=== PATIENT | female | born 1955 | race Caucasian/White ===

== ENCOUNTER 2021-12-15 03:44 | Inpatient (IN) | payer OTHER ==
[~2021-12-15] VITALS: Ht 162.6 cm; Wt 82.2 kg
[2021-12-15 03:50] VITALS: BP_SYST 167
--- NOTE | 2021-12-15 03:54 | NUR ---
Placed in room 2 . Placed on monitor technician, blood pressure machine and pulse oximeter. To gown for exam. Side rails up. Report given to Glenn IBANEZ.
--- NOTE | 2021-12-15 04:00 | NUR ---
ER at bedside examining patient.
[2021-12-15] MEDS ORDERED: dilTIAZem HCL IVP 5 MG/ML VIAL IVP ONE ×2 (04:15→05:30)
[2021-12-15 04:29] LABS: BASOPHILS % (AUTO) 0.8 % (0.0-2.0); EOSINOPHILS # (AUTO) 0.1 K/uL (0.0-0.4); EOSINOPHILS % (AUTO) 1.8 % (0.0-4.0); HEMATOCRIT 37.2 % (36-48); HEMOGLOBIN 12.7 g/dL (12.0-16.0); LYMPHOCYTES # (AUTO) 2.7 K/uL (1.0-5.5); LYMPHOCYTES % (AUTO) 45.3 % (20.5-51.5); MEAN CORPUSCULAR HEMOGLOBIN 32 pg (27-31); MEAN CORPUSCULAR HGB CONC 34 % (32-36); MEAN CORPUSCULAR VOLUME 93 fL (79.0-98.0); MONOCYTES # (AUTO) 0.7 K/uL (0.0-1.0); MONOCYTES % (AUTO) 11.4 % (1.7-9.3); NEUTROPHILS # (AUTO) 2.4 K/uL (1.8-7.7); NEUTROPHILS % (AUTO) 40.7 % (40.0-70.0); PLATELET COUNT (AUTO) 204 K/uL (130-430); RED BLOOD CELL COUNT(AUTO) 3.99 MIL/uL (4.2-6.2); RED CELL DISTRIBUTION WIDTH 12.6 % (9.0-15.0); WHITE BLOOD COUNT (AUTO) 5.9 K/uL (4.8-10.8)
[2021-12-15 04:38] LABS: ANION GAP 6 (5-15); CALCIUM 7.9 mg/dL (8.4-11.0); CHLORIDE 102 mmol/L (98-107); CREATININE 0.98 mg/dL (0.55-1.30); GLUCOSE 105 mg/dL (70-99); POTASSIUM 3.7 mmol/L (3.5-5.1); SODIUM SERUM 136 mmol/L (136-145); UREA NITROGEN, BLOOD 28 mg/dL (8-21)
[2021-12-15] MEDS ORDERED: ONDANSETRON HCL 4 MG/2 ML VIAL ONE (04:42)
[2021-12-15] MEDS ORDERED: ONDANSETRON HCL 4 MG/2 ML VIAL IVP ONE (04:45)
[2021-12-15 04:46] LABS: ALANINE AMINOTRANSFERASE 15 U/L (12-78); ALBUMIN 3.5 g/dL (3.4-4.8); ASPARTATE AMINOTRANSFERASE 15 U/L (10-37); TOTAL BILIRUBIN 0.1 mg/dL (0.0-1.0)
[2021-12-15 04:49] LABS: GFR AFRICAN AMERICAN 73 mL/min (>90)
[2021-12-15 04:59] LABS: FREE T4 (FREE THYROXINE) 1.1 ng/dl (0.8-1.5); THYROID STIMULATING HORMONE 2.93 uIu/mL (0.36-3.74)
--- NOTE | 2021-12-15 05:00 | NUR ---
Admit bed requested Patient will be admitted to care of Dr.A RAE. Admitted to TELE unit. Diagnosis NEW ONSET A-FIB Inpatient (Yes or No) YES Observation (Yes or No) NO Orientation concerns or request close to nursing station (Yes or No) NO Covid Status PENDING On vent or bipap NO Isolation requirements NO Needs a sitter NO From Home (Yes or if No enter name of facility) YES Requires Dialysis (Yes or No) NO Med Rec Completed (Yes of No) PENDING
[2021-12-15 05:03] LABS: BILIRUBIN,URINE NEGATIVE (NEGATIVE); CLARITY/URINE CLEAR (CLEAR); COLOR,URINE YELLOW (YELLOW); GLUCOSE,URINE NEGATIVE (NEGATIVE); KETONES,URINE NEGATIVE (NEGATIVE); LEUKOCYTE ESTERASE ,URINE NEGATIVE (NEGATIVE); NITRITE, URINE NEGATIVE (NEGATIVE); PROTEIN URINE NEGATIVE (NEGATIVE); UROBILINOGEN,URINE 0.2 (0.2-1.0)
[2021-12-15 05:07] LABS: BLOOD, URINE TRACE (NEGATIVE)
[2021-12-15 05:14] LABS: BACTERIA,URINE FEW /HPF (None Seen); RBC,URINE 0-3 /HPF (0-3); WBC,URINE 0-3 /HPF (0-3)
[2021-12-15] MEDS ORDERED: ARMOUR THYROID PO (05:43)
[2021-12-15] MEDS ORDERED: LISI10TA29 PO (05:43)
[2021-12-15] MEDS ORDERED: NITR-85 PO (05:44)
--- NOTE | 2021-12-15 05:55 | NUR ---
Pt undecided for her code status at this time.Dr Pearson made aware .
--- NOTE | 2021-12-15 06:10 | NUR ---
ADMIT NOTE Received pt from ER to the floor with a diagnosis of new onset A fib. Admission process initiated. Patient oriented to pain management, safety and call light-teach back done.
--- NOTE | 2021-12-15 06:10 | NUR ---
Pt converted to sinus rhythm on monitor with rate in 70s. Being admitted to the floor room 112b. Report called and given to Belkis IBANEZ. All questions answered and concerns addressed. VS stable and son is accompanying to room
--- NOTE | 2021-12-15 06:12 | NUR ---
Patient will be admitted to care of Bhavna Oswald. Admitted to tele unit. Will go to room 112b. Belongings list completed. Complete and up to date summary report printed. SBAR report to be given at bedside with opportunity for questions.
--- NOTE | 2021-12-15 06:15 | NUR ---
CONSULTATION PAGED REASON FOR CONSULTATION:AFIB WAS CONSULT CALED?Y PERSON WHO WAS NOTIFIED:GENE CONSULTING PHYSICIAN:BLANKA PATEL INSURANCE CLAIMS REPRESENTATIVE SPECIALTY:CARDIO INSURANCE CLAIMS REPRESENTATIVE PHONE NUMBER:[phone] REQUESTING PHYSICIAN:PRATIBHA PATEL
[2021-12-15 06:20] VITALS: BP_SYST 141
--- NOTE | 2021-12-15 07:40 | NUR ---
Closing Patient resting in bed, AOx4, unlabored breathing on room air. Ambulated from gurney to bed on arrival. Care endorsed to oncoming nurse.
[2021-12-15 08:15] VITALS: BP_SYST 130
--- NOTE | 2021-12-15 08:15 | NUR ---
INITIAL ROUNDS Received pt AAOx4, no c/o chest pain or chest pressure, no c/o palpitations. Plan o care for the day review with pt-pt verbalized her understanding. Admission data physical assessment completed. Pain management, disease process, skin and safety discussed-teach back done. Call light within reach.
[2021-12-15 08:52] VITALS: BP_SYST 130
[2021-12-15] MEDS ORDERED: ACETAMINOPHEN 325 MG TABLET PO PRN ×2 (09:00→09:45)
[2021-12-15] MEDS ORDERED: HYDROcodone/ACETAMIN 10-325 MG TAB PO PRN (09:45)
[2021-12-15] MEDS ORDERED: NALOXONE HCL 0.4 MG/ML AMP (NARCAN) IVP PRN ×2 (09:45)
[2021-12-15] MEDS ORDERED: ONDANSETRON HCL 4 MG/2 ML VIAL IVP PRN (09:45)
[2021-12-15] MEDS ORDERED: HYDROcodone/ACETAMIN 5-325 MG TAB (NORCO/ VICODIN) PO PRN (09:45)
[2021-12-15] MEDS ORDERED: LISINOPRIL 10 MG TABLET (PRINIVIL) PO ONE (10:00)
[2021-12-15] MEDS: NITROFURANTOIN MONOHYD/M-CRYST 100 MG CAPSULE (MacroBID) PO ONE ×2 (10:00→12:00)
[2021-12-15] MEDS: NORMAL SALINE 5 ML DISP.SYRIN IVF SCH ×4 (14:00→21:43)
[2021-12-15 16:13] VITALS: BP_SYST 130
--- NOTE | 2021-12-15 18:15 | NUR ---
CLOSING NOTE Pt sitting up in bed eating her dinner, no s/s resp distress, no c/o pain or discomfort, no c/o palpitations. Pt given fresh pitcher of ice water and a cup of hot water. Needs met, call light within reach.
--- NOTE | 2021-12-15 19:15 | NUR ---
OPENING NOTES Patient resting in bed - no s/s pain or distress noted. Respirations even and unlabored - head of bed elevated. IV site patent - no s/s redness, infection, or infiltration. Bed locked and in lowest position.
[2021-12-15] MEDS: NITROFURANTOIN MONOHYD/M-CRYST 100 MG CAPSULE (MacroBID) PO SCH (21:00)
--- NOTE | 2021-12-15 22:50 | NUR ---
PAGED DR. RAE FOR SLEEPING MED ORDER PATIENT ASKS FOR SLEEPING MED - PAGED DR. RAE PATIENT HAD STATED THEY TAKE 0.5mg XANAX AT NIGHT FOR SLEEP NOTIFIED DR ABOUT MEDICATION, STATES OKAY FOR ONE TIME ORDER OF 0.5MG XANAX PO
[2021-12-15] MEDS ORDERED: ALPRAZolam 0.25 MG TABLET PO ONE (23:00)
[2021-12-16 00:38] VITALS: BP_SYST 103
[2021-12-16] MEDS: NORMAL SALINE 5 ML DISP.SYRIN IVF SCH ×2 (06:00→06:42)
[2021-12-16 07:12] LABS: BASOPHILS % (AUTO) 0.4 % (0.0-2.0); EOSINOPHILS # (AUTO) 0.2 K/uL (0.0-0.4); EOSINOPHILS % (AUTO) 3.2 % (0.0-4.0); HEMATOCRIT 37.2 % (36-48); HEMOGLOBIN 12.8 g/dL (12.0-16.0); LYMPHOCYTES # (AUTO) 1.9 K/uL (1.0-5.5); LYMPHOCYTES % (AUTO) 40.2 % (20.5-51.5); MEAN CORPUSCULAR HEMOGLOBIN 32 pg (27-31); MEAN CORPUSCULAR HGB CONC 34 % (32-36); MEAN CORPUSCULAR VOLUME 94 fL (79.0-98.0); MONOCYTES # (AUTO) 0.5 K/uL (0.0-1.0); MONOCYTES % (AUTO) 10.4 % (1.7-9.3); NEUTROPHILS # (AUTO) 2.2 K/uL (1.8-7.7); NEUTROPHILS % (AUTO) 45.8 % (40.0-70.0); PLATELET COUNT (AUTO) 207 K/uL (130-430); RED BLOOD CELL COUNT(AUTO) 3.97 MIL/uL (4.2-6.2); RED CELL DISTRIBUTION WIDTH 12.9 % (9.0-15.0); WHITE BLOOD COUNT (AUTO) 4.7 K/uL (4.8-10.8)
--- NOTE | 2021-12-16 07:45 | NUR ---
INITIAL ROUNDS Received pt AAOx4, no c/o chest pain or chest pressure, no c/o palpitations. Plan of care for the day reviewed with pt-pt verbalized her understanding. Pt states she is feeling better today. Pain management, disease process, skin and safety discussed-teach back done. Call light within reach.
[2021-12-16 07:54] LABS: CALCIUM 8.1 mg/dL (8.4-11.0); CREATININE 0.94 mg/dL (0.55-1.30); PHOSPHORUS 4.6 mg/dL (2.7-4.5); POTASSIUM 4.2 mmol/L (3.5-5.1)
[2021-12-16 08:20] VITALS: BP_SYST 131
[2021-12-16] MEDS: NITROFURANTOIN MONOHYD/M-CRYST 100 MG CAPSULE (MacroBID) PO SCH (08:24)
[2021-12-16] MEDS ORDERED: LISINOPRIL 10 MG TABLET (PRINIVIL) PO SCH (09:00)
[2021-12-16] MEDS ORDERED: THYROID 30 MG TABLET PO SCH (09:00)
[2021-12-16] MEDS ORDERED: ARMOUR THYROID PO SCH (09:00)
[2021-12-16 12:52] VITALS: BP_SYST 131
--- NOTE | 2021-12-16 12:59 | NUR ---
ROUNDS/MD/DISCHARGE Pt sitting up in bed with no c/o chest pain or chest pressure or palpitations. Pt waiting to be discharged after seen by Dr. Bhavna Oswald-explained to the pt that we need to clear it with Dr. Valente Oswald per MD discharge order. hospital personnel director stated she will call Dr. Valente Oswald. Pt verbalized her understanding. Call light within reach.
--- NOTE | 2021-12-16 13:12 | NUR ---
CATALINO TO D/C PER CARDIO MD Spoke with Dr. Valente Oswald and actalino to discharge pt home from cardio standpoint, pt to follow-up with Sheet Catcher in 2 weeks.
--- NOTE | 2021-12-16 13:31 | NUR ---
PATIENT DISCHARGED HOME Patient given medication reconciliation form and D/C instructions. Exit Care explained and provided. Patient verbalized her understanding. MD discussed with patient the results and treatment provided. Ambulatory with steady gait for discharge to home. Patient in stable condition, ID band removed. IV catheter removed, intact and dressing applied, no active bleeding. Patient educated on pain management. All belongings sent with patient. Patient left floor via wheelchair to private vehicle in no distress.
== END 2021-12-16 13:20 | disposition home or self-care (01) | DRG 310 ==
LOC: SED 03:44 → STU 05:04
PROVIDERS: ADMIT Preventive Medicine Preventive Medicine/Occupational Environmental Medicine; ATTEND Preventive Medicine Preventive Medicine/Occupational Environmental Medicine
DX: I48.91 Unspecified atrial fibrillation (principal); E03.9 Hypothyroidism, unspecified; I10 Essential (primary) hypertension; F10.10 Alcohol abuse, uncomplicated; Y90.9 Presence of alcohol in blood, level not specified; Z20.822 Contact with and (suspected) exposure to COVID-19; M06.9 Rheumatoid arthritis, unspecified; E06.3 Autoimmune thyroiditis; G47.00 Insomnia, unspecified; I42.9 Cardiomyopathy, unspecified; Z88.8 Allergy status to other drugs, medicaments and biological substances; Z79.899 Other long term (current) drug therapy
CPT/HCPCS: 36415; 71045; 80048; 80053; 81000; 83735; 83880; 84100; 84439; 84443; 84484; 85025; 93005; 93306; 96374; 96375; 99285; G0378; J2405; J3490

== ENCOUNTER 2022-09-29 20:37 | Observation (INO) | payer OTHER ==
[~2022-09-29] VITALS: Ht 162.6 cm; Wt 79.4 kg
[~2022-09-29 20:37] MED LIST: ARMOUR THYROID PO; LISI10TA29 PO; NITR-85 PO
[2022-09-29 20:45] VITALS: BP_SYST 145
--- NOTE | 2022-09-29 20:51 | NUR ---
Report given to MARCELLE Theodore at this time.
--- NOTE | 2022-09-29 20:51 | NUR ---
Patient triaged and placed in ED bed 8 for isolation precautions due to Covid postive home test on 09/19/22. Patient has hx of afib and has elevated HR 145-165 at this time. Patient A/Ox4, ambulatory, resp even and unlabored. Placed on monitor in bed. Report given to MARCELLE Cordova. ER MD Luna made aware.
--- NOTE | 2022-09-29 21:01 | NUR ---
ER at bedside examining patient.
[2022-09-29 21:19] LABS: HEMATOCRIT 40.5 % (36-48); HEMOGLOBIN 13.9 g/dL (12.0-16.0); MEAN CORPUSCULAR HEMOGLOBIN 33 pg (27-31); MEAN CORPUSCULAR HGB CONC 34 % (32-36); MEAN CORPUSCULAR VOLUME 95 fL (79.0-98.0); PLATELET COUNT (AUTO) 165 K/uL (130-430); RED BLOOD CELL COUNT(AUTO) 4.29 MIL/uL (4.2-6.2); WHITE BLOOD COUNT (AUTO) 3.4 K/uL (4.8-10.8)
[2022-09-29 21:30] LABS: ANION GAP 9 (5-15); CALCIUM 8.2 mg/dL (8.4-11.0); CHLORIDE 97 mmol/L (98-107); CREATININE 1.13 mg/dL (0.55-1.30); GLUCOSE 107 mg/dL (70-99); UREA NITROGEN, BLOOD 26 mg/dL (8-21)
[2022-09-29] MEDS ORDERED: dilTIAZem HCL IVP 5 MG/ML VIAL IVP ONE ×3 (21:30→22:45)
[2022-09-29 21:43] LABS: ALANINE AMINOTRANSFERASE 29 U/L (12-78); ALBUMIN 3.6 g/dL (3.4-4.8); ASPARTATE AMINOTRANSFERASE 22 U/L (10-37); PHOSPHORUS 4.3 mg/dL (2.7-4.5); THYROID STIMULATING HORMONE 3.21 uIu/mL (0.34-4.82); TOTAL BILIRUBIN 0.3 mg/dL (0.0-1.0)
[2022-09-29 21:51] LABS: GFR AFRICAN AMERICAN 62 mL/min (>90)
[2022-09-29 21:56] LABS: BAND % (MANUAL) 6 % (0-6)
[2022-09-29 21:57] LABS: BASOPHILS % (MANUAL) 0 % (0-2); EOSINOPHILS % (MANUAL) 1 % (0-7); LYMPHOCYTES % (MANUAL) 50 % (20-46); MONOCYTES % (MANUAL) 19 % (0-11)
--- NOTE | 2022-09-29 22:15 | NUR ---
prior to administering cardizem pt had bouts of NSR @72 bpm. ER MD notified of this to confirm if he wanted ordered sose of 20 mg iv. Md Confirmed to give sode as ordered.
[2022-09-29] MEDS ORDERED: DILT60TA3 PO (23:15)
[2022-09-29] MEDS ORDERED: APIX2.5T PO (23:15)
[2022-09-29] MEDS ORDERED: DILTIAZEM HCL 60 MG TABLET PO ONE (23:15)
[2022-09-29] MEDS ORDERED: LISI20TA30 PO (23:15)
[2022-09-29] MEDS ORDERED: ARMOUR THYROID PO (23:15)
--- NOTE | 2022-09-29 23:15 | NUR ---
Medication reconciliation completed with information provided by pt at the bedside. Any prior medication reconciliation on file was reviewed and corrected.
[2022-09-29] MEDS ORDERED: dilTIAZem HCL IVP 5 MG/ML VIAL IVP PRN (23:45)
--- NOTE | 2022-09-29 23:45 | NUR ---
Admit bed requested Patient will be admitted to care of . Admitted to TELE unit. Diagnosis A-FIB WITH RVR Inpatient (Yes or No) YES Observation (Yes or No) NO Orientation concerns or request close to nursing station (Yes or No) NO Covid Status POSITIVE On vent or bipap NO Isolation requirements NO Needs a sitter NO From Home (Yes or if No enter name of facility) YES Requires Dialysis (Yes or No) NO Med Rec Completed (Yes of No) YES
[2022-09-30] VITALS (7 sets, daily range): BP systolic 100–117
--- NOTE | 2022-09-30 02:00 | NUR ---
Received pt from ED. Pt awake and oriented. Ambulatory. v/s stable afebrile. Tele- A FIB rate < 100. Pt denied palpitation. Initiated Enhanced contact isolation for Covid positive. Redness on bilateral behind ear and inside ear, perineal area and gluteal crease- no open wound. Room air. Will cont monitor associate manager.
--- NOTE | 2022-09-30 02:15 | NUR ---
Patient will be admitted to care of [facility]. Admitted to room tele unit bed 133b. Will go to room . Belongings list completed. Complete and up to date summary report printed. SBAR report to africa David be given at bedside with opportunity for questions.
--- NOTE | 2022-09-30 06:56 | NUR ---
pt 67years old female with admitted from ER to tele floor for atrial fibrillation and irregular heart beats, Covid positive, no sx or signs of sob or chest . no fever .no signs of distress. stated that she has sleep apnea and will need her CPAP. sleep comforatble in her bed. vitals are stable. comfort meausres are provided.
--- NOTE | 2022-09-30 08:00 | NUR ---
Morning Notes: Patient is lying in bed relaxing and stable. Room air, nonlabored, contact isolation for COVID. Call light in reach, bed in lowest position.
[2022-09-30 08:04] LABS: BASOPHILS % (AUTO) 0.4 % (0.0-2.0); EOSINOPHILS % (AUTO) 0.2 % (0.0-4.0); HEMATOCRIT 41.3 % (36-48); HEMOGLOBIN 14.2 g/dL (12.0-16.0); LYMPHOCYTES # (AUTO) 1.7 K/uL (1.0-5.5); LYMPHOCYTES % (AUTO) 51.7 % (20.5-51.5); MEAN CORPUSCULAR HEMOGLOBIN 33 pg (27-31); MEAN CORPUSCULAR HGB CONC 34 % (32-36); MEAN CORPUSCULAR VOLUME 95 fL (79.0-98.0); MONOCYTES # (AUTO) 0.4 K/uL (0.0-1.0); MONOCYTES % (AUTO) 12.5 % (1.7-9.3); NEUTROPHILS # (AUTO) 1.1 K/uL (1.8-7.7); NEUTROPHILS % (AUTO) 35.2 % (40.0-70.0); PLATELET COUNT (AUTO) 163 K/uL (130-430); RED BLOOD CELL COUNT(AUTO) 4.33 MIL/uL (4.2-6.2); RED CELL DISTRIBUTION WIDTH 12.9 % (9.0-15.0); WHITE BLOOD COUNT (AUTO) 3.2 K/uL (4.8-10.8)
[2022-09-30 08:33] LABS: ALBUMIN 3.3 g/dL (3.4-4.8); CALCIUM 8.5 mg/dL (8.4-11.0); CREATININE 0.85 mg/dL (0.55-1.30); TOTAL BILIRUBIN 0.2 mg/dL (0.0-1.0)
[2022-09-30 08:42] LABS: FREE T4 (FREE THYROXINE) 1.2 ng/dl (0.8-1.5); THYROID STIMULATING HORMONE 2.54 uIu/mL (0.36-3.74)
[2022-09-30] MEDS ORDERED: APIXABAN 2.5 MG TABLET PO SCH ×2 (09:00)
[2022-09-30] MEDS ORDERED: DILTIAZEM HCL 120 MG CAP.SR.24H PO SCH (09:00)
--- NOTE | 2022-09-30 18:55 | NUR ---
D/C Patient Patient given medication reconciliation form and D/C instructions. Exit Care provided. Patient verbalized understanding, pointed out patient needs to reconcile prescriptions with pharmacist and patient verbalized understanding. MD discussed with patient the results and treatment provided. Ambulatory with steady gait for discharge to home. Patient in stable condition, ID band removed. IV access was removed by patient, no active bleeding noted. MD Escript sent to preferred pharmacy. Patient educated on pain management. All belongings sent with patient.
== END 2022-09-30 18:55 | disposition home or self-care (01) ==
LOC: SED 20:37 → INTOOBSV 23:40 → UNDOADMOB 23:40 → STU 23:40 → UNDODISOB 09-30 18:55
PROVIDERS: ADMIT Internal Medicine; ATTEND Internal Medicine
DX: U07.1 COVID-19 (principal); I48.0 Paroxysmal atrial fibrillation; I10 Essential (primary) hypertension; E03.9 Hypothyroidism, unspecified; E78.5 Hyperlipidemia, unspecified; N17.9 Acute kidney failure, unspecified; D72.820 Lymphocytosis (symptomatic); L40.50 Arthropathic psoriasis, unspecified; Z79.01 Long term (current) use of anticoagulants; Z91.14 Patient's other noncompliance with medication regimen; Z79.899 Other long term (current) drug therapy
CPT/HCPCS: 99291; 96374; 87426; 85027; 80053 ×2; 83735; 84100; 84443 ×2; 85007; 84484; 36415 ×2; 93005 ×2; 83880; 84439; 85025; 71045; J3490; G0378